=== PATIENT | female | born 1955 | race Caucasian/White ===

== ENCOUNTER 2017-12-17 12:09 | Emergency (ER) | payer OTHER ==
[~2017-12-17] VITALS: Ht 162.6 cm; Wt 77.6 kg
[2017-12-17] MEDS ORDERED: SEROQUEL25 MG (13:48)
[2017-12-17] MEDS ORDERED: PAXIL20 MG (13:48)
[2017-12-17] MEDS ORDERED: PAXIL10 MG/5 ML (13:48)
[2017-12-17] MEDS ORDERED: ATIVAN1 MG (13:48)
[2017-12-17] MEDS ORDERED: AMBIEN10 MG (13:48)
== END 2017-12-17 15:56 | disposition home or self-care (01) ==
LOC: ER 12:09
DX: M54.5 Low back pain (principal); M54.41 Lumbago with sciatica, right side